=== PATIENT | female | born 1965 | race Caucasian/White ===

== ENCOUNTER 2018-11-23 14:00 | Emergency (ER) | payer MEDICAID ==
[2018-11-23 14:30] VITALS: BMI 31.1
[2018-11-23 16:33] LABS: BASO # 0.1 K/uL (0.0-0.2); BASO % 0.6 % (0.0-2.0); EOS # 0.2 K/uL (0.0-0.7); EOS % 2.5 % (0.0-4.0); HEMOGLOBIN 12.4 g/dL (11.0-16.0); LYMPH # 3.1 K/uL (1.0-4.3); LYMPH % 36.3 % (20.0-40.0); MEAN CELL VOLUME 91.7 fL (81.0-99.0); MEAN CORPUSCULAR HEMOGLOBIN 30.6 pg (27.0-31.0); MEAN CORPUSCULAR HGB CONC 33.4 g/dL (33.0-37.0); MEAN PLATELET VOLUME 8.5 fL (7.2-11.7); MONO # 0.9 K/uL (0.0-0.8); MONO % 10.9 % (0.0-10.0); NEUT # 4.2 K/uL (1.8-7.0); NEUT % 49.7 % (50.0-75.0); NRBC % 0.1 % (0.0-2.0); RBC 4.06 Mil/uL (3.80-5.20); RED CELL DISTRIBUTION WIDTH 13.3 % (11.5-14.5); WHITE BLOOD COUNT 8.4 K/uL (4.8-10.8)
[2018-11-23 16:41] LABS: INR 1.1; PROTHROMBIN TIME 11.8 SECONDS (9.7-12.2)
[2018-11-23 17:08] LABS: ALB/GLOB RATIO 1.6 (1.0-2.1); ALBUMIN 4.1 g/dL (3.5-5.0); ALT/SGPT 24 U/L (9-52); AST/SGOT 29 U/L (14-36); BLOOD UREA NITROGEN 17 mg/dL (7-17); CALCIUM 8.2 mg/dl (8.6-10.4); GFR NON-AFRICAN AMERICAN > 60
--- NOTE | 2018-11-23 17:18 | C.PDOC ---
History Of Present Illness 53 y/o female presents to the ED with worsening pain to right lower leg with increased swelling over the past several days. Patient reports also having fluctuation of blood pressure and heart rate in the office. She was seen by Dr. Baker in the office, and was sent here to r/o DVT . Patient is additionally complaining of right pelvic pain that has been ongoing for several months. At present time, she is asymptomatic. Otherwise she denies any vaginal bleeding, discharge, urinary symptoms, nausea, vomiting, chest pain, SOB, dizziness, or headache. Time Seen by Provider: 11/23/18 15:14 Chief Complaint (Nursing): Female Genitourinary History Per: Patient, Family () History/Exam Limitations: no limitations Onset/Duration Of Symptoms: Days, Intermittent Episodes Current Symptoms Are (Timing): Still Present Pain Scale Rating Of: 1 Recent travel outside of the [place]: No Past Medical History Reviewed: Historical Data, Nursing Documentation, Vital Signs Vital Signs: Last Vital Signs Temp 98.1 F 11/23/18 14:30 Pulse 51 L 11/23/18 15:24 Resp 16 11/23/18 15:24 BP 121/53 L 11/23/18 15:24 Pulse Ox 99 11/23/18 15:24 - Medical History PMH: HTN Family History: States: Unknown Family Hx - Social History Hx Alcohol Use: No Hx Substance Use: No - Immunization History Hx Tetanus Toxoid Vaccination: No Hx Influenza Vaccination: No Hx Pneumococcal Vaccination: No Review Of Systems Except As Marked, All Systems Reviewed And Found Negative. Constitutional: Negative for: Fever, Chills Cardiovascular: Negative for: Chest Pain Respiratory: Negative for: Shortness of Breath Gastrointestinal: Negative for: Nausea, Vomiting Genitourinary: Positive for: Pelvic Pain Musculoskeletal: Positive for: Leg Pain (and swelling) Skin: Negative for: Rash, Lesions Neurological: Negative for: Weakness, Numbness, Headache, Dizziness Physical Exam - Physical Exam Appears: Non-toxic, No Acute Distress Skin: Warm, Dry, No Rash Head: Atraumatic, Normacephalic Eye(s): bilateral: Normal Inspection, PERRL, EOMI Oral Mucosa: Moist Neck: Normal ROM, Supple Chest: Symmetrical Cardiovascular: Rhythm Regular, No Friction Rub, No Murmur Respiratory: Normal Breath Sounds, No Rales, No Rhonchi, No Stridor, No Wheezing Gastrointestinal/Abdominal: Soft, No Tenderness, No Distention Back: Normal Inspection, No CVA Tenderness Extremity: Normal ROM, No Pedal Edema (or calf swelling), No Calf Tenderness, Other (bilateral tortuous varicose veins) Pulses: Left Dorsalis Pedis: Normal, Right Dorsalis Pedis: Normal Neurological/Psych: Oriented x3, Normal Motor, Normal Sensation Gait: Steady ED Course And Treatment - Laboratory Results Result Diagrams: 11/23/18 16:27 11/23/18 16:27 Lab Results: PT 11.8 SECONDS (9.7-12.2) 11/23/18 16:27 INR 1.1 11/23/18 16:27 APTT 32 SECONDS (21-34) 11/23/18 16:27 Total Bilirubin 0.3 mg/dL (0.2-1.3) 11/23/18 16:27 AST 29 U/L (14-36) 11/23/18 16:27 ALT 24 U/L (9-52) 11/23/18 16:27 Alkaline Phosphatase 72 U/L (38-126) 11/23/18 16:27 Total Protein 6.7 g/dL (6.3-8.3) 11/23/18 16:27 Albumin 4.1 g/dL (3.5-5.0) 11/23/18 16:27 Globulin 2.6 gm/dL (2.2-3.9) 11/23/18 16:27 Albumin/Globulin Ratio 1.6 (1.0-2.1) 11/23/18 16:27 O2 Sat by Pulse Oximetry: 99 (RA) Pulse Ox Interpretation: Normal - CT Scan/US Doppler US Other Rad Studies (CT/US): Read By Radiologist CT/US Interpretation: negative for DVT Medical Decision Making Medical Decision Making: Initial Plan: - CMP - CBC - PTT/PT - UA - Urine culture - Venous Doppler, RLE Venous Doppler is negative for DVT. Vitals remain WNLs. Patient reports improvement of symptoms. Patient was found to have low heart rate in the 40's in office according to the but patient was placed on computational linguist and only heart rate of 50-60's. On re-exam, the patient remains active and alert. Lungs are CTA, heart is RRR, abdomen is soft, non-tender and the patient is tolerating Po well. Follow up with the medical doctor/clinic within 1-2 days. Return if worsened. Disposition - Disposition Referrals: Lino Sawyer MD [Staff Provider] - Disposition: HOME/ ROUTINE Disposition Time: 18:42 Condition: STABLE Additional Instructions: Follow up with the medical doctor within 1-2 days. Return if worsened. 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 - Scribe Statement The provider has reviewed the documentation as recorded by the Scribvinny Ward All medical record entries made by the Delfinaibvinny were at my direction and personally dictated by me. I have reviewed the chart and agree that the record accurately reflects my personal performance of the history, physical exam, medical decision making, and the department course for this patient. I have also personally directed, reviewed, and agree with the discharge instructions and disposition.
[2018-11-23 17:19] LABS: HCG,QUALITATIVE URINE NEGATIVE (NEGATIVE)
[2018-11-23 17:24] LABS: SQUAMOUS EPITHIAL 6 /hpf (0-5); URINE BACTERIA OCC (<OCC); URINE BILIRUBIN NEGATIVE (NEGATIVE); URINE BLOOD 2+ (NEGATIVE); URINE CLARITY Hazy (Clear); URINE COLOR Yellow (YELLOW); URINE GLUCOSE (UA) NORMAL (Normal); URINE LEUKOCYTE ESTERASE NEG Leu/uL (Negative); URINE PROTEIN NEGATIVE (NEGATIVE); URINE UROBILINOGEN NORMAL mg/dL (0.2-1.0)
[2018-11-23] MEDS ORDERED: DiphenhydrAMINE 50 mg/ml Inj IVP STA (17:49)
[2018-11-23] MEDS ORDERED: Sodium Chloride 0.9% 1,000 ML IV ONE (17:49)
[2018-11-23] MEDS ORDERED: DiphenhydrAMINE 50 mg/ml Inj ONE (18:02)
[2018-11-23] MEDS ORDERED: Sodium Chloride 0.9% 1,000 ML ONE (18:02)
[2018-11-23 18:54] VITALS: BP 116/63; PULSE 58; RESP 19; TEMP 97.5
[2018-11-24 09:57] VITALS: O2SAT 99
--- NOTE | 2018-11-25 21:31 | VASCLAB ---
Date of service: 11/23/2018 PROCEDURE: Lower Extremity Venous Duplex Exam. HISTORY: large varicose veins, pain, swelling, r/o DVT PRIORS: None. TECHNIQUE: Bilateral common femoral, femoral, popliteal and posterior tibial, peroneal and great saphenous veins were evaluated. Flow was assessed with color Doppler, compressibility, assessment of phasic flow and augmentation response. Report prepared by PEEWEE Lezama FINDINGS: RIGHT: 1. Common Femoral Vein: 1.1. Compressibility - Fully compressible: Thrombus - None : Flow - Phasic: Augmentation -Normal: Reflux - None. 2. Femoral Vein: 2.1. Compressibility - Fully compressible: Thrombus - None : Flow - Phasic: Augmentation -Normal: Reflux - None. 3. Popliteal Vein: 3.1. Compressibility - Fully compressible: Thrombus - None : Flow - Phasic: Augmentation -Normal: Reflux - None. 4. Posterior Tibial Vein: 4.1. Compressibility - Fully compressible: Thrombus - None: Flow - Phasic: Augmentation -Normal: Reflux - None. 5. Peroneal Vein: 5.1. Compressibility - Fully compressible: Thrombus - None: Flow - Phasic: Augmentation -Normal: Reflux - None. 6. Great Saphenous Vein: 6.1. Compressibility - Fully compressible: Thrombus - None: Flow - Phasic: Augmentation - Normal: Reflux - None. LEFT: 1. Common Femoral Vein: 1.1. Compressibility - Fully compressible: Thrombus - None: Flow - Phasic: Augmentation -Normal: Reflux - None. 2. Femoral Vein: 2.1. Compressibility - Fully compressible: Thrombus - None: Flow - Phasic: Augmentation -Normal: Reflux - None. 3. Popliteal Vein: 3.1. Compressibility - Fully compressible: Thrombus - None : Flow - Phasic: Augmentation -Normal: Reflux - None. 4. Posterior Tibial Vein: 4.1. Compressibility - Fully compressible: Thrombus - None: Flow - Phasic: Augmentation -Normal: Reflux - None. 5. Peroneal Vein: 5.1. Compressibility - Fully compressible: Thrombus - None: Flow - Phasic: Augmentation -Normal: Reflux - None. 6. Great Saphenous Vein: 6.1. Compressibility - Fully compressible: Thrombus - None: Flow - Phasic: Augmentation - Normal: Reflux - None. OTHER FINDINGS: Right: None significant. Left: None significant. IMPRESSION: Right: No evidence of deep or superficial vein thrombosis of the right lower extremity. Normal valve function noted of the right side. Left: No evidence of deep or superficial vein thrombosis of the left lower extremity. Normal valve function noted of the left side.
== END 2018-11-23 18:57 | disposition home or self-care (01) ==
LOC: C.ER 14:00
DX: R00.1 Bradycardia, unspecified (principal); I83.90 Asymptomatic varicose veins of unspecified lower extremity; I10 Essential (primary) hypertension
CPT/HCPCS: 80053; 81001; 84703; 85025; 85610; 85730; 87086; 93970; 96361; 96374; 96375; 99285; J1200; J2765; J7030